=== PATIENT | male | born 1965 ===

== ENCOUNTER 2025-06-20 12:36 | Outpatient (REF) | payer MEDICAID, SELFPAY ==
--- OUTSIDE RECORDS SUMMARY | 2025-05-17 05:45 | XMS_ITS ---
Author Organization [facility] Address [address] [place] [phone] Care Team Providers Care Irrigation System Installer Name Role Phone Mir Bryant Primary Care Provider REASON FOR VISIT (IN OFFICE) Follow Up Encounters Encounter Location Date Provider Diagnosis [employer] [facility] [address] 05/17/20 Mir Bryant Plan Of Treatment Next Appt Details Provider Name:Cassidy Long i, 07/09/2025 09:00:00 AM, [address] [place] [address], [phone], Progress Notes * Sandy AZAROB: 8 (59 yo M)Acc No.[id number]:05/17/2025 Progress Notes Patient: Ron Watsonstephanie Josh Provider: Ron Bryant M.D. :1965 A ge:59 Y S ex:Male Date:05/17/2025 Address:[address] [place] [address] [place], [id number] Subjective: * Chief Complaints: * ( IN OFFICE) Follow Up * The named appointment provid er may or may not be the originator of this progress note, and it is not deemed complete until electronically signed by the appointment provider. Sign off status: Pending * Provider: Ron Bryant M.D. Date: 07/17/2024 Generated for Yamile sim/Ryan/eTransmitting on: 1 08/22/2024 04:25 PM EST
--- OUTSIDE RECORDS SUMMARY | 2025-06-18 05:45 | XMS_ITS ---
Author Organization [facility] Address [address] [place] [address] Care Team Providers Care Data Entry Name Role Phone Mir Bryant Primary Care Provider REASON FOR VISIT (IN OFFICE), Follow Up, Visit productive cough and chest congestion Medications Medication SIG (Take, Route, Frequency, Duration) Notes Start Date End Date Status Montelukast Sodium 10 MG Tablet 1 tablet Orally Once a day; Duration: 30 day(s) 06/17/2025 Active Azithromycin 250 MG Tablet 2 tablet on t he first day, then 1 tablet daily for 4 days Orally Once a day; Duration: 5 days 06/18/2025 Active Lisinopril 20 MG Tablet 1 tablet Orally Once a day; Duration: 30 days 06/17/2025 Active Albuterol Sulfate HFA 108 (9 0 Base) MCG/ACT Aerosol Solution 2 puff as needed Inhalation every 4 hrs; Duration: 30 days 06/17/2025 Active Mucinex 600 MG Tablet Extended Release 12 Hour 1 tablet as needed Orally every 12 hrs; Duration: 10 days 06/18/2025 Active Levocetirizine Dihydrochloride 5 MG Tablet 1 tablet in the evening Orally Once a day; Duration: 30 day(s) 06/17/2025 Active EpiPen 2-Meño 0.3 MG/0.3ML Solution Auto-injector 1 injection as needed Injection Once the Active Social History Tobacco Use: Social History Observation Description Date Details (start date - stop date) Former Smoker NA - NA Social History Tobacco Use: Social Info Question Answer Notes Tobacco Use/Smoking Are you a former smoker How long has it been since you last smoked? > 10 years Additional Findings: Tobacco Non-User Ex-cigaret te smoker Vital Signs Blood pressure systolic 142 mm Hg 06/18/20 25 Blood pressure diastolic 90 mm Hg 025 Heart Rate 88 /min 06/18/2025 Height 67 in 06/18/2025 Weight 225.8 lbs 06/18/2025 BMI 35.36 kg/m2 06/18/2025 Encounters Encounter Location Date Provider Diagnosis [address] [address] 06/18/2025 Mir Bryant Primary osteoarthrit is of right knee M17.11 ; Essential hypertension I10 ; Anxiety F41.9 ; Insomnia due to medical condition G47.01 ; Allergic reaction, initial encounter T78.40XA ; Substance abuse F19.10 ; Wheezing R06.2 ; Postnasal drip R09.82 and Respiratory infection J98.8 Assessments Encounter Date Diagnosis (ICD Code) Assessment Notes Treatment Notes Treatment Clinical Notes Section Notes 06/18/2025 Primary osteoarthritis of right knee (ICD-10 - M17.11) 06/18/2025 Essential hypertension (ICD-10 - I10) 06/18/2025 Anxiety (ICD-10 - F41.9) 06/18/2025 Insomnia due to medical condition (ICD-10 - G47.01) 06/18/2025 Allergic reaction, initial encounter (ICD-10 - T78.40XA) 06/18/2025 Substance abuse (ICD-10 - F19.10) 06/18/2025 Wheezing (ICD-10 - R06.2) 06/18/2025 Postnasal drip (ICD-10 - R09.82) 06/18/2025 Respiratory infection (ICD-10 - J98.8) 06/18/2025 Other This chart has been transcribed by a computerized dictation system. There are likely to be multiple automotive window tinter inaccuracies despite chart review. Plan Of Treatment Medication Medication Name Sig Start Date Stop Date Notes Montelukast Sodium 10 MG Tablet 1 tablet Orally Once a day; Duration: 30 day(s) 06/17/2025 Azithromycin 250 MG Tablet 2 tablet on t he first day, then 1 tablet daily for 4 days Orally Once a day; Duration: 5 days 06/18/2025 Lisinopril 20 MG Tablet 1 tablet Orally Once a day; Duration: 30 days 06/17/2025 Albuterol Sulfate HFA 108 (9 0 Base) MCG/ACT Aerosol Solution 2 puff as needed Inhalation every 4 hrs; Duration: 30 days 06/17/2025 Mucinex 600 MG Tablet Extend ed Release 12 Hour 1 tablet as needed Orally every 12 hrs; Duration: 10 days 06/18/2025 Levocetirizine Dihydrochlori de 5 MG Tablet 1 tablet in the evening Orally Once a day; Duration: 30 day(s) 06/17/2025 Treatment Notes Assessment Notes Other This chart has been transcribed by a computerized dictation system. There are likely to be multiple automotive window tinter inaccuracies despite chart review. Next Appt Details Follow Up: 2 Weeks, Reason: Annual physical with Carmela Provider Name:Cassidy Schaefertorinshannon damir, 07/09/2025 09:00:00 AM, [address] [place] [address], [phone], History and Physical Notes * HPI (History of Present Illness) Category Sub-Category Detail Notes Category Not es Symptom(s) 59-year old mal e patient with history of Essential hypertension,generalized anxiety disorder, depression, Allergic rhinitis,insomnia, and DJD right knee is here for follow-up.Assessment the patient has been taking lisinopril 20 mg by mouth daily. He has been monitoring his blood pressure at home. He has brought his blood pressure instrument erum Lopez calibrated during the visit. Patient's blood pressure instrument reads 33 points high on systolic and 21 points higher on diastolic.After subtraction patient's home blood pressure readings appear to be borderline high. I advised him to increase the dose of lisinopril to 30 mg by mouth daily. She's allergic rhinitis symptoms. Over the bowel to Xyzal, Singulair, and has not had to use albuterol. he complains of a productive cough with chest congestion for the past few days. I started the patient on azithromycin and Mucinex. Advised him to take steam inhalation 2-3 times a day. Examination Category Sub-Category Detail Notes Category Not es General Examination GENERAL APPEARANCE: in no ac huber distress, well developed, well nourished HEAD: normocephalic, atrau matic EYES: pupils equal, round, reactive to light and accommodation THROAT: clear, no erythema, uvula midline, no exudate NECK/THYROID: neck supple, no thyr omegaly, trachea midline, no carotid bruit HEART: no murmurs, regular rate and rhythm, S1, S2 normal LUNGS: clear to auscultatio n bilaterally ABDOMEN: soft, nontender, non distended, no organomegaly , bowel sounds present NEUROLOGIC: alert and oriented x 3, nonfocal SKIN: no suspicious lesion s, warm and dry EXTREMITIES: no clubbing, cyanosi s, or edema PERIPHERAL PULSES: normal, 2+ throughou t MUSCULOSKELETAL: normal, full range o f motion LYMPH NODES: no cervical, axillar y, supraclavicular or inguinal adenopathy PSYCH: cognitive function i ntact, mood/affect full range ORAL CAVITY: mucosa moist, no les ions, palate normal, tongue in midline, well papillated Progress Notes * Andrew AZARdDOB: 8 (59 yo M)Acc No.[id number]:06/18/2025 Progress Notes Patient: Josh Álvarez Provider: Ron Bryant M.D. :1965 A ge:59 Y S ex:Male Date:06/18/2025 Address:[address] [facility], [place], [id number] Subjective: * Chief Complaints: * ( IN OFFICE), Follow UpVisit productive cough and chest congestion * HPI: S ymptom(s): 59-year old male patient with history of Essential hypertension,generalized anxiety disorder, depression, Allergic rhinitis,insomnia, and DJD right knee is here for follow-up.Assessment the patient has been taking lisinopril 20 mg by mouth daily. He has been monitoring his blood pressure at home. He has brought his blood pressure instrument [facility] Lopez calibrated during the visit. Patient's blood pressure instrument reads 33 points high on systolic and 21 points higher on diastolic.After subtraction patient's home blood pressure readings appear to be borderline high. I advised him to increase the dose of lisinopril to 30 mg by mouth daily. She's allergic rhinitis symptoms. Over the bowel to Xyzal, Singulair, and has not had to use albuterol. he complains of a productive cough with chest congestion for the past few days. I started the patient on azithromycin and Mucinex. Advised him to take steam inhalation 2-3 times a day. * ROS: G eneral/Constitutional: Fever d enies. D izziness d enies. F atigue?denies. C hange in appetite d enies. E ndocrine: Weight loss d enies. W eight gain d enies. E xcessive thirst d enies. R espiratory: Cough d enies. C ongestion d enies. W heezing?denies. S putum production d enies. C ardiovascular: Chest pain d enies. D yspnea on exertion d enies.?Edema d enies. P alpitations d enies. G astrointestinal: Abdominal pain d enies. H eartburn d enies. N ausea d enies. V omiting d enies. C hange in bowel habits d enies. B RBPR?denies. D ysphagia d enies. H ematology: Easy bruising d enies. E nlarged glands d enies.? G enitourinary: Frequent urination d enies. P ainful urination d enies. I ncontience d enies. B lood in urine d enies. N octuria d enies. ? M usculoskeletal: C/D/L pain d enies. B zacarias aches d enies. J oint pain a dmits. S ciatica d enies. S kin: Rash d enies. I tching d enies. S kin lesion(s)?denies. H leonel d enies. N eurologic: Weakness d enies. S eizures d enies. H eadache?denies. T ingling/Numbness d enies. M alphonse loss d enies. T remor d enies. P sychiatric: Depressed mood d enies. A nxiety d enies. P anic attacks d enies. D ifficulty sleeping d enies. 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 * Hospitalization/Major Diagno stic Procedure: for above procedures Cardiac arrest related to alcohol & cocaine with flash pulmonary edema and aspiration pneumonia 2021 Hospitalization Verified. * Family History: F ather: alive. M other: alive. C hildren: alive. 2 daughter(s) - healthy. . F amily History Verified.. family history unknown, patient is adopted. * Social History: T obacco Use: T obacco Use/Smoking A re you a f ormer smoker H ow long has it been since you last smoked??> 10 years A dditional Findings: Tobacco Non-User E x-cigarette smoker S ocial History Verified. * Medications: T akingAlbuterol Sulfate HFA 108 (90 Base) MCG/ACT Aerosol Solution 2 puff as needed Inhalation every 4 hrs Montelukast Sodium 10 MG Tablet 1 tablet Orally Once a day Levocetirizine Dihydrochloride 5 MG Tablet 1 tablet in the evening Orally Once a day EpiPen 2-Meño 0.3 MG/0.3ML Solution Auto-injector 1 injection as needed Injection Once the Lisinopril 20 MG Tablet 1 tablet Orally Once a day Medication List reviewed and reconciled with the patientTaking Albuterol Sulfate HFA 108 (90 Base) MCG/ACT Aerosol Solution 2 puff as needed Inhalation every 4 hrs Taking Montelukast Sodium 10 MG Tablet 1 tablet Orally Once a day Taking Levocetirizine Dihydrochloride 5 MG Tablet 1 tablet in the evening Orally Once a day Taking EpiPen 2-Meño 0.3 MG/0.3ML Solution Auto-injector 1 injection as needed Injection Once the Taking Lisinopril 20 MG Tablet 1 tablet Orally Once a day Medication List reviewed and reconciled with the patient * Allergies: y esAllergies Verified. Objective: * Vitals: H t: 67 in, Wt: 225.8 lbs, BMI:35.36Index, BP: 142/90 mm Hg, HR: 88 /min, Ht-cm: 170.18 cm, Wt-k.42 kg. * P ast Orders: Lab:PSA Total+% Free-[id number] * Collection Date 06/11/2025 06/11/2025 Collection Time 08:07 AM 08:07 AM Order Date 06/04/2025 06/11/2025 Prostate Specific Ag 0.8 (Ref Range: 0.0-4.0 ng/mL) TNP (Ref Range: ng/mL) PSA, Free 0.20 (Ref Range: N/A ng/mL) TNP % Free PSA 25.0 (Ref Range: %) NR ???Lab:Urinalysis, Complete-[id number] (Order Date - 06/04/2025) (Collection Date & Time - 06/11/2025 08:07 AM)?ValueReference Range?Specific Carroll TNP-?pHTNP-?ProteinTNP-?GlucoseTNP-?KetonesTNP- ???Lab:Vitamin D, 47-Bpgecji-[id number] (Order Date - 06/04/2025) (Collection Date & Time - 508:07 AM)?ValueReference Range?Vitamin D, 25-Sjhddey76.0L30.0-100.0 - ng/mL?Request ProblemTNP-?Request ProblemTNP- * Lab:LP+Non-HDL Cholesterol-3 [id number] * Collection Date 06/11/2025 06/11/2025 Collection Time 08:07 AM 08:07 AM Order Date 06/04/2025 06/11/2025 Cholesterol, Total 221 H (Ref Range: 100-199 mg/dL) TNP (Ref Range: mg/dL) Triglycerides 72 (Ref Range: 0-149 mg/dL) TNP HDL Cholesterol 106 (Ref Range: >39 mg/dL) TNP VLDL Cholesterol Shalom 12 (Ref Range: 5-40 mg/dL) TNP (Ref Range: mg/dL) LDL Chol Calc (NIH) 103 H (Ref Range: 0-99 mg/dL) NR Non-HDL Cholesterol 115 (Ref Range: 0-129 mg/dL) NR * Lab:TSH+Free [id number] * Collection Date 06/11/2025 06/11/2025 Collection Time 08:07 AM 08:07 AM Order Date 06/04/2025 06/11/2025 TSH 4.410 (Ref Range: 0.450-4.500 uIU/mL) TNP (Ref Range: uIU/mL) T4,Free(Direct) 1.07 (Ref Range: 0.82-1.77 ng/dL) TNP * Lab:Comp. Metabolic Panel (1 3)-[id number] * Collection Date 06/11/2025 06/11/2025 Collection Time 08:07 AM 08:07 AM Order Date 06/04/2025 06/11/2025 Glucose 109 H (Ref Range: 70-99 mg/dL) TNP (Ref Range: mg/dL) BUN 17 (Ref Range: 6-24 mg/dL) TNP Creatinine 1.26 (Ref Range: 0.76-1.27 mg/dL) TNP BUN/Creatinine Ratio 13 (Ref Range: 9-20) NR Sodium 150 H (Ref Range: 134-144 mmol/L) TNP Potassium 4.9 (Ref Range: 3.5-5.2 mmol/L) TNP Chloride 110 H (Ref Range: 96-106 mmol/L) TNP Carbon Dioxide, Total 18 L (Ref Range: 20-29 mmol/L) TNP Calcium 9.4 (Ref Range: 8.7-10.2 mg/dL) TNP Protein, Total 6.9 (Ref Range: 6.0-8.5 g/dL) TNP Albumin 4.7 (Ref Range: 3.8-4.9 g/dL) TNP Globulin, Total 2.2 (Ref Range: 1.5-4.5 g/dL) NR Bilirubin, Total <0.2 (Ref Range: 0.0-1.2 mg/dL) TNP Alkaline Phosphatase 94 (Ref Range: 47-123 IU/L) TNP AST (SGOT) 25 (Ref Range: 0-40 IU/L) TNP eGFR 67 (Ref Range: >59 mL/min/1.73) NR ???Lab:CBC with Diff, Platelet, NLR-[id number] (Order Date - 06/04/2025) (Collection Date & Time - 06/11/2025 08:07 AM)?ValueReference Range?WBC3.63.4- 10.8 - x10E3/uL?RBC4.544.14-5.80 - x10E6/uL?Pwqvfsjwlu11.613.0- 17.7 - g/dL?Fwzsnjzzhw22.537.5-51.0 - %?AYC6607-56 - fL?MCH 32.226.6-33.0 - pg?MCHC34.431.5-35.7 - g/dL?RDW11.611.6-15.4 - % ?Vtjyatbyt634123-038 - x10E3/uL?Utignsbonmc06Fcu Estab. - % ?Doeizn72Ygh Estab. - %?Xhqbpusvr97Hti Estab. - %?Ihw1Zil Estab. - %?Hsfma8Mef Estab. - %?Neutrophils (Absolute)2.21.4-7.0 - x10E3/uL?Lymphs (Absolute)0.6L0.7-3.1 - x10E3/uL?Neut/Lymph Ratio 3.7H0.0-2.9 - ratio?Monocytes(Absolute)0.60.1-0.9 - x10E3/uL?Eos (Absolute)0.10.0-0.4 - x10E3/uL?Baso (Absolute)0.00.0-0.2 - x10E3/uL ?Immature Vwpztiuvkehu6Djr Estab. - %?Immature Grans (Abs)0.00.0- 0.1 - x10E3/uL * Examination: G eneral Examination: GENERAL APPEARANCE: i n no acute distress, well developed, well nourished. HEAD: n ormocephalic, atraumatic. EYES: p upils equal, round, reactive to light and accommodation. ORAL CAVITY: m ucosa moist, no lesions, palate normal, tongue in midline, well papillated. THROAT: c lear, no erythema, uvula midline, no exudate.? NECK/THYROID: n jose david supple, no thyromegaly, trachea midline, no carotid bruit. LYMPH NODES: n o cervical, axillary, supraclavicular or inguinal adenopathy. SKIN: n o suspicious lesions, warm and dry. HEART: n o murmurs, regular rate and rhythm, S1, S2 normal.? LUNGS: c lear to auscultation bilaterally. ABDOMEN: s oft, nontender, nondistended, no organomegaly , bowel sounds present. MUSCULOSKELETAL: n ormal, full range of motion. EXTREMITIES: n o clubbing, cyanosis, or edema. PERIPHERAL PULSES: n ormal, 2+ throughout. NEUROLOGIC: a lert and oriented x3, nonfocal. PSYCH: c ognitive function intact, mood/affect full range.? Assessment: * Assessment: 1. E ssential hypertension - I10 (Primary) 2 . P rimary osteoarthritis of right knee - M17.11 3 . A nxiety - F41.9 4 . I nsomnia due to medical condition - G47.01 5 . A llergic reaction, initial encounter - T78.40XA 6. S ubstance abuse - F19.10 7 . W heezing - R06.2 ? 8 . P ostnasal drip - R09.82 9 . R espiratory infection - J98.8? Plan: * Treatment: 2. W heezing Start Albuterol Sulfate HFA Aerosol Solution, 108 (90 Base) MCG/ACT, 2 puff as needed, Inhalation, every 4 hrs, 30 days, 1, Refills 0. 3. P ostnasal drip Start Montelukast Sodium Tablet, 10 MG, 1 tablet, Orally, Once a day, 30 day(s), 30, Refills 1;?Start Levocetirizine Dihydrochloride Tablet, 5 MG, 1 tablet in the evening, Orally, Once a day, 30 day(s), 30, Refills 1. 4. R espiratory infection Start Azithromycin Tablet, 250 MG, 2 tablet on the first day, then 1 tablet daily for 4 days, Orally, Once a day, 5 days, 6, Refills 0; S tart Mucinex Tablet Extended Release 12 Hour, 600 MG, 1 tablet as needed, Orally, every 12 hrs, 10 days, 20 Tablet, Refills 0. 5. O thers Notes: This chart has been transcribed by a computerized dictation system. There are likely to be multiple automotive window tinter inaccuracies despite chart review. * Follow Up: 2 Weeks (Reason: Annual physical with Carmela) Billing Information: * Procedure Codes: * The named appointment provid er may or may not be the originator of this progress note, and it is not deemed complete until electronically signed by the appointment provider. Sign off status: Pending * Provider: Ron Bryant M.D. Date: 08/19/2024 Generated for Yamile sim/Ryan/Andrae on: 08/22/2024 04:24 PM EST
--- NOTE | ~2025-06-20 | XR_ITS ---
EXAMINATION: XR KNEE, LEFT CLINICAL INFORMATION: M25.562 - Pain in left knee COMPARISON: None available. TECHNIQUE: Four views of the left knee. FINDINGS: No fracture, dislocation, or suspicious bone lesion. Mild to moderate medial compartment joint space narrowing with marginal osteophytic spurring. Mild lateral and patellofemoral compartment osteoarthrosis. Chondrocalcinosis noted in the patellofemoral compartments suggesting CPPD. Mild spurring of the tibial spines. There is a moderate sized suprapatellar joint effusion. There is no soft tissue abnormality. XR/XR knee LT 3V IMPRESSION: 1. Tricompartmental osteoarthritis, mild to moderate in the medial compartment. The presence of chondrocalcinosis in the patellofemoral compartment raises the possibility of underlying CPPD. 2. Moderate suprapatellar joint effusion. Electronically signed by: Russ Odom MD 06/20/2025 03:27 PM VINAYAK
--- OUTSIDE RECORDS SUMMARY | 2025-06-21 16:25 | XMS_ITS | Clinical Summary ---
Author Organization [facility] Prior to 12/02/[address] [place] [address] Care Team Providers Care Freight Checker Name Role Phone Mir Bryant MD Primary Care Provider [phone] Allergies Active Allergy Reactions Criticality Noted Date [...] this topic Medical Devices Implanted Type Area Investor Relations Manager Device Identifier Shelf Expiration Date Model / Serial / Lot Knee Fem Bsplt W Pa Stry-Howm [id number] 219 - [id number] Implanted:Qty: 1 on 11/09/2022 by Omar Elizabeth MD at [facility] and Med Right: Knee [employer] [id number] 08/18/2027 5517-F-502 / / [id number] Knee Bsplt Triathlon Ti Sz 4 Stry-Howm [id number] 543 - [id number] Implanted:Qty: 1 on 11/09/2022 by Omar Elizabeth MD at [facility] and Med Right: Knee [employer] [id number] 07/09/2027 5536-B-400 / / [id number] Knee Tib Insrt Cr-X3 [id number] Stry-How 1131-[id number] 525 - [id number] Implanted:Qty: 1 on 11/09/2022 by Omar Elizabeth MD at [facility] and Med Right: Knee [employer] [id number] 02/05/2025 5530-G-411 / / [id number] Knee Ptla Asym Tritanium 35x10 Stry-How [id number] 040 - [id number] Implanted:Qty: 1 on 11/09/2022 by Omar Elizabeth MD at [facility] and Med Right: Knee [employer] [id number] 08/04/2027 5552-L-350 / / [id number] Advance Directives For more information, please contact: [phone] Latest Code Status on File Code Status Date Activated Date Inactivated Comments Full Code 11/09/2022 6:52 AM 11/10/2022 7:09 PM This co de status was ascertained in the following way: discussion with healthcare screening representative . Code Status History Code Status Date Activated Date Inactivated Comments Full Code 11/09/2022 6:00 AM 11/09/2022 6:52 AM This co de status was ascertained in the following way: discussion with patient . Care Teams Freight Checker Relationship Specialty Start Date End Date Mir Bryant MD [address] [place] [address] [address] [place] [address] PCP - General Internal Medicine 12/25/21
--- OUTSIDE RECORDS SUMMARY | 2025-06-21 16:25 | XMS_ITS | Patient Health Record ---
Author Organization [facility] Address [address] [place] [address] Care Team Providers Care Bus Driver/Monitor Name Role Phone Mir Bryant Primary Care Provider Allergies No Known Allergies Results Component Value Reference Range Flag Notes PSA Total+% Free-[id number] Reviewed date:06/16/2025 11:29:00 AM Interpretation: Performing Lab:[facility] [place], [address], [address], [place], Phone - [phone], [facility] Notes[facility]Report: Clinical Information:XR/[id number] Prostate Specific Ag TNP Please refer to the following specimen for additional lab results. Refer to Spec #[id number] Gui ECLIA methodology. . According to the [place] [employer], Serum PSA should decrease and [...] PSA, Free TNP Test not perfo rmed LP+Non-HDL Cholesterol-48512 5 Reviewed date:06/16/2025 11:29:00 AM Interpretation: Performing Lab:[facility], [address], [address], [place], Phone - [phone], [facility] Notes[facility]Report: Clinical Information:XR/[id number] Cholesterol, Total TNP Please refer to the following specimen for additional lab results. Refer to Spec #[id number] Triglycerides TNP Test not pe rformed HDL Cholesterol TNP Test not performed VLDL Cholesterol Shalom TNP Unable to calculate result since non-numeric result obtained for component test. TSH+Free [id number] Reviewed date:06/16/2025 11:29:00 AM Interpretation: Performing Lab:[facility] [place], [address], [address], [place], Phone - [phone], Director - [facility] Notes/Report: Clinical Information:XR/[id number] TSH TNP Please refer to the following specimen for additional lab results. Refer to Spec #[id number] T4,Free(Direct) TNP Test not performed Comp. Metabolic Panel (13)-3 58870 Reviewed date:06/16/2025 11:29:00 AM Interpretation: Performing Lab:[facility] [place], [address], [address], [place], Phone - [phone], Director - [facility] Notes/Report: Clinical Information:XR/[id number] Glucose TNP Please refer to the following specimen for additional lab results. Refer to Spec #[id number] BUN TNP Test not perfo rmed Creatinine [...] AST (SGOT) TNP Test not perfo rmed Urinalysis, Complete-666262 Reviewed date:06/16/2025 11:29:00 AM Interpretation: Performing Lab:[facility] [place], [address], [address], [place], Phone - [phone], Director - [facility] Notes/Report: Clinical Information:XR/[id number] Specific [place] TNP Test not performed. Patient was unable to provide a self-collected specimen for the requested testing. The following test(s) were not performed: pH TNP Test not perfo rmed Protein TNP Test not perfo rmed Glucose TNP Test not perfo rmed Ketones TNP Test not perfo rmed Vitamin D, 83-Qmyoxvp-859735 Reviewed date:06/16/2025 11:29:00 AM Interpretation: Performing Lab:[facility], [address], [address], [place], Phone - [phone], [facility] Notes/Report: Clinical Information:XR/[id number] Vitamin D, 25-Hydroxy 29.0 30.0-100.0 ng/mL L Vitamin D deficiency has been defined by the [place] of Medicine and an Endocrine Society practice guideline as a level of serum 25-OH vitamin D less than 20 ng/mL (1,2). The Endocrine Society went on to further define vitamin D insufficiency as a level between 21 and 29 ng/mL (2). 1. IOM ([place] of Medicine). 2010. Dietary reference intakes for calcium and D. [place]: The National Academies Press. 2. Hardik FISCHER, Paulina ASHLEY, Hilda SEYMOUR, et al. Evaluation, treatment, and prevention of vitamin D deficiency: an Endocrine Society clinical practice guideline. JCEM. 2010; 96(7):1911-30. Request Problem TNP Test not performed. Patient was unable to provide a self-collected specimen for the requested testing. The following test(s) were not performed: TEST: 303380 Urinalysis, Complete Request Problem TNP Please refer to the following specimen for additional lab results. TEST: 370670 TSH+Free T4 011092 Comp. Metabolic Panel (13) 973190 LP+Non-HDL Cholesterol 418753 PSA Total+% Free Refer to Spec #[id number] TSH+Free T4-768444 Reviewed date:06/16/2025 11:29:00 AM Interpretation: Performing Lab:[facility], [address] [facility], Phone - [phone], Director - Dori Notes/Report: TSH 4.410 0.450-4.500 uIU/mL T4,Free(Direct) 1.07 0.82-1.77 ng/dL Comp. Metabolic Panel (13)-3 17476 Reviewed date:06/16/2025 11:29:00 AM Interpretation: Performing Lab:[facility], [address] [facility], [place], Phone - [phone], Director - Dori Notes/Report: Glucose 109 70-99 [...] 47-123 IU/L AST (SGOT) 25 0-40 IU/L PSA Total+% Free-[id number] Reviewed date:06/16/2025 11:29:00 AM Interpretation: Performing Lab:[facility], [address] [place] [address], [place], Phone - [phone], Director - [facility] Notes/Report: Prostate Specific Ag 0.8 0.0-4.0 ng/mL Gui FliqzIA methodology. . According to the [place] [employer], Serum PSA should decrease and [...] 4 and 10 ng/mL, by patient age (Catalona et al, ABHI 1998, 279:1542). % Free PSA 50-64 yr 65-75 yr 0.00-10.00% 56% 55% 10.01-15.00% 24% 35% 15.01-20.00% 17% 23% 20.01-25.00% 10% 20% >25.00% 5% 9% Please note: Dany et al did not make specific recommendations regarding the use of percent free PSA for any other population of men. LP+Non-HDL Cholesterol-30943 5 Reviewed date:06/16/2025 11:29:00 AM Interpretation: Performing Lab:[facility] [place], [address], [place], Phone - [phone], Director - Dori Notes/Report: Cholesterol, Total 221 100-199 mg/dL H Triglycerides 72 0-149 mg/dL HDL Cholesterol 106 >39 mg/dL VLDL Cholesterol Shalom 12 5-40 mg/dL LDL Chol Calc ([facility]) 103 0-99 mg/dL H Non-HDL Cholesterol 115 0-129 mg/dL CBC with Diff, Platelet, NLR -[id number] Reviewed date:06/16/2025 11:29:00 AM Interpretation: Performing Lab:[facility], [address], [address], [place], Phone - [phone], Director - Danny Notes/Report: Clinical Information:XR/[id number] WBC 3.6 3.4-10.8 x10E3/uL RBC 4.54 4.14-5.80 [...] W/U Status Risk Notes Problem Primary insomnia (4515080) Primary insomnia (F51.01) Active confirmed Problem Insomnia (339992287) Insomnia due to medical condition (G47.01) Active confirmed Problem Anxiety (17854065) Anxiety (F41.9) Active confirmed Problem Essential hypertension (23342980) Essential hypertension (I10) Active confirmed Problem Allergic reaction (179523285) Allergic reaction, initial encounter (T78.40XA) Active confirmed Problem Substance abuse (2925943818) Substance abuse (F19.10) Active confirmed Problem Osteoarthritis of knee (194438130) Primary osteoarthritis of right knee (M17.11) Active confirmed Vital Signs Heart Rate 88 /min 06/18/2025 Blood pressure diastolic 90 mm Hg 06/18/2025 Height 67 in 06/18/2025 Blood pressure systolic 142 mm Hg 06/18/2025 Weight 225.8 lbs 06/18/2025 BMI 35.36 kg/m2 06/18/2025 Encounters Encounter Location Date Provider Diagnosis [address] [address] 06/18/2025 Mir Bryant Primary osteoarthrit is of right knee M17.11 ; Essential hypertension I10 ; Anxiety F41.9 ; Insomnia due to medical condition G47.01 ; Allergic reaction, initial encounter T78.40XA ; Substance abuse F19.10 ; Wheezing R06.2 ; Postnasal drip R09.82 and Respiratory infection J98.[address] [address] 06/04/2025 Mir Bryant Primary osteoarthrit is of right knee M17.11 ; Essential hypertension I10 ; Anxiety F41.9 ; Insomnia due to medical condition G47.01 ; Allergic reaction, initial encounter T78.40XA ; Substance abuse F19.10 ; Laboratory tests ordered as part of a complete physical exam (CPE) Z00.00 ; Wheezing R06.2 and Postnasal drip R09.[address] [address] 06/04/2025 Mir Bryant Essential hypertensi on I10 Assessments Encounter Date Diagnosis (ICD Code) Assessment Notes Treatment Notes Treatment Clinical Notes Section Notes 06/18/2025 Primary osteoarthritis of right knee (ICD-10 - M17.11) 06/04/2025 Essential hypertension (ICD-10 - I10) 06/04/2025 Primary osteoarthritis of right knee (ICD-10 - M17.11) 06/18/2025 Anxiety (ICD-10 - F41.9) 06/18/2025 Essential hypertension (ICD-10 - I10) 06/04/2025 Anxiety (ICD-10 - F41.9) 06/04/2025 Essential hypertension (ICD-10 - I10) 06/18/2025 Insomnia due to medical condition (ICD-10 - G47.01) 06/04/2025 Insomnia due to medical condition (ICD-10 - G47.01) 06/18/2025 Allergic reaction, initial encounter (ICD-10 - T78.40XA) 06/04/2025 Allergic reaction, initial encounter (ICD-10 - T78.40XA) 06/04/2025 Substance abuse (ICD-10 - F19.10) 06/18/2025 Substance abuse (ICD-10 - F19.10) 06/04/2025 Laboratory [...] system. There are likely to be multiple utility repairer inaccuracies despite chart review. 06/04/2025 Other This chart has been transcribed by a computerized dictation system. There are likely to be multiple utility repairer inaccuracies despite chart review. Plan Of Treatment [...] Name:Cassidy Long i, 07/09/2025 09:00:00 AM, [address] [place], [address], Insurance Providers Payer Name Payer Address Payer Phone Subscriber Number Group Number Insured Name Patient Relationship to Insured Coverage Start Date Coverage End Date [facility] [place] [address] [address] [place] [address] [id number] Josh Guardado Self - patient is the [...]
--- OUTSIDE RECORDS SUMMARY | 2025-06-21 16:25 | XMS_ITS | Clinical Summary ---
[facility] Organization [facility] Address [address] [place] [address] Care Team Providers Care Floor Surfacer Name Role Phone Mir Bryant MD Primary Care Provider [phone] Surgical History Surgery Date Site/Laterality Comments APPENDECTOMY [...] this topic Medical Devices Implanted Type Area Kaitara [place] Device Identifier Shelf Expiration Date Model / Serial / Lot Knee Fem Bsplt W Pa Stry-How [id number] Implanted:Qty: 1 on 11/09/2022 by Omar Elizabeth MD Right: Knee [employer] [id number] 08/18/2027 5517-F-502 / / [id number] Knee Bsplt Triathlon Ti Sz 4 Stry-How [id number] Implanted:Qty: 1 on 11/09/2022 by Omar Elizabeth MD Right: Knee [employer] [id number] 07/09/2027 5536-B-400 / / [id number] Knee Tib Insrt Cr-X3 [id number] Stry-How [id number] Implanted:Qty: 1 on 11/09/2022 by Omar Elizabeth MD Right: Knee [employer] [id number] 02/05/2025 5530-G-411 / / [id number] Knee Ptla Asym Tritanium 35x10 [facility] [id number] Implanted:Qty: 1 on 11/09/2022 by Omar Elizabeth MD Right: Knee [employer] [id number] 08/04/2027 5552-L-350 / / [id number] Care Teams Floor Surfacer Relationship Specialty Start Date End Date Mir Bryant MD PCP - General Internal Medicine 12/25/21
== END 2025-06-20 12:37 | disposition home or self-care (01) ==
LOC: HO.HOSX 12:36
PROVIDERS: Visit Provider Orthopaedic Surgery
DX: S83.242A Other tear of medial meniscus, current injury, left knee, initial encounter (principal)
CPT/HCPCS: 20610; 73562; 99202; J1010; J2003

== ENCOUNTER 2025-06-20 15:04 | Outpatient (AMB) | payer MEDICAID, SELFPAY ==
--- OUTSIDE RECORDS SUMMARY | 2025-05-17 05:45 | XMS_ITS ---
Author Organization [facility] Address [address] [place] [address] Care Team Providers Care Rn Compliance Name Role Phone Mir Bryant Primary Care Provider [phone] REASON FOR VISIT (IN OFFICE) Follow Up Encounters Encounter Location Date Provider Diagnosis [employer] [facility] [address] 05/17/20 Mir Bryant Plan Of Treatment Next Appt Details Provider Name:Cassidy Long i, 07/09/2025 09:00:00 AM, [address] [place] [address], [phone], Progress Notes * Sandy AZAROB: 8 (59 yo M)Acc No.[id number]:05/17/2025 Progress Notes Patient: Ron Watsonstephanie Josh Provider: Ron Bryant M.D. :1965 A ge:59 Y S ex:Male Date:05/17/2025 Address:[address] [place] [address] [place], [id number] Subjective: * Chief Complaints: * ( IN OFFICE) Follow Up * The named appointment provid er may or may not be the originator of this progress note, and it is not deemed complete until electronically signed by the appointment provider. Sign off status: Pending * Provider: Ron Bryant M.D. Date: 07/17/2024 Generated for Yamile sim/Ryan/eTransmitting on: 1 08/21/2024 08:02 PM EST
--- OUTSIDE RECORDS SUMMARY | 2025-06-18 05:45 | XMS_ITS ---
Author Organization [facility] Address [address] [place] [address] Care Team Providers Care Chip Washer Name Role Phone Mir Bryant Primary Care [...] 06/18/2025 Encounters Encounter Location Date Provider Diagnosis [address] [address] 06/18/2025 Mir Bryant Primary osteoarthrit is of [...] system. There are likely to be multiple eeo officer inaccuracies despite chart review. Plan Of Treatment [...] system. There are likely to be multiple eeo officer inaccuracies despite chart review. Next Appt Details Follow Up: 2 Weeks, Reason: Annual physical with Carmela Provider Name:Cassidy Schaefertorinshannon damir, 07/09/2025 09:00:00 AM, [address] [place] [address], [phone], History and Physical Notes * HPI (History [...] * Andrew AZARdDOB: 8 (59 yo M)Acc No.[id number]:06/18/2025 Progress Notes Patient: Josh Álvarez Provider: Ron Bryant M.D. :1965 A ge:59 Y S ex:Male Date:06/18/2025 Address:[address] [facility], [place], [id number] Subjective: * Chief Complaints: * ( IN [...] He has brought his blood pressure instrument [facility] calibrated during the visit. Patient's blood [...] kg. * P ast Orders: Lab:PSA Total+% Free-[id number] * Collection Date 06/11/2025 06/11/2025 Collection Time 08:07 AM 08:07 AM Order Date 06/04/2025 06/11/2025 Prostate Specific Ag 0.8 (Ref Range: 0.0-4.0 ng/mL) TNP (Ref Range: ng/mL) PSA, Free 0.20 (Ref Range: N/A ng/mL) TNP % Free PSA 25.0 (Ref Range: %) NR ???Lab:Urinalysis, Complete-[id number] (Order Date - 06/04/2025) (Collection Date & Time - 06/11/2025 08:07 AM)?ValueReference Range?Specific Parrish TNP-?pHTNP-?ProteinTNP-?GlucoseTNP-?KetonesTNP- ???Lab:Vitamin D, 79-Zfrsmzj-[id number] (Order Date - 06/04/2025) (Collection Date & Time - 508:07 AM)?ValueReference Range?Vitamin D, 25-Uqrvlds90.0L30.0-100.0 - ng/mL?Request ProblemTNP-?Request ProblemTNP- * Lab:LP+Non-HDL Cholesterol-3 [id number] * Collection Date 06/11/2025 06/11/2025 Collection Time [...] (Ref Range: 0-129 mg/dL) NR * Lab:TSH+Free [id number] * Collection Date 06/11/2025 06/11/2025 Collection Time 08:07 AM 08:07 AM Order Date 06/04/2025 06/11/2025 TSH 4.410 (Ref Range: 0.450-4.500 uIU/mL) TNP (Ref Range: uIU/mL) T4,Free(Direct) 1.07 (Ref Range: 0.82-1.77 ng/dL) TNP * Lab:Comp. Metabolic Panel (1 3)-[id number] * Collection Date 06/11/2025 06/11/2025 Collection Time [...] >59 mL/min/1.73) NR ???Lab:CBC with Diff, Platelet, NLR-[id number] (Order Date - 06/04/2025) (Collection Date & Time - 06/11/2025 08:07 AM)?ValueReference Range?WBC3.63.4- 10.8 - x10E3/uL?RBC4.544.14-5.80 - x10E6/uL?Fgaclzdtgf99.613.0- 17.7 - g/dL?Pffewzaesi11.537.5-51.0 - %?YVP5285-76 - fL?MCH 32.226.6-33.0 - pg?MCHC34.431.5-35.7 - g/dL?RDW11.611.6-15.4 - % ?Qfkcybmuh694086-567 - x10E3/uL?Mjizuweqhgc18Hwi Estab. - % ?Tgvzcw00Mnz Estab. - %?Msrpyhdkh84Wct Estab. - %?Wjp1Erd Estab. - %?Solnk8Pdd Estab. - %?Neutrophils (Absolute)2.21.4-7.0 - x10E3/uL?Lymphs (Absolute)0.6L0.7-3.1 - x10E3/uL?Neut/Lymph Ratio 3.7H0.0-2.9 - ratio?Monocytes(Absolute)0.60.1-0.9 - x10E3/uL?Eos (Absolute)0.10.0-0.4 - x10E3/uL?Baso (Absolute)0.00.0-0.2 - x10E3/uL ?Immature Czpsdzbslxcc8Qay Estab. - %?Immature Grans (Abs)0.00.0- 0.1 - [...] system. There are likely to be multiple eeo officer inaccuracies despite chart review. * Follow Up: [...] Date: 08/19/2024 Generated for Yamile sim/Ryan/Andrae on: 08/21/2024 08:01 PM EST
--- NOTE | 2025-06-20 15:17 | MHC.OFFVIS ---
Vital Signs 06/20/25 15:24 Height 5 ft 8 in Weight 220 lb BMI 33.4 Intake Visit Reasons: Left knee pain and giving way Intake Note: Chun is a 59 year old who presents with complaints of progressively worsening left knee pain and giving way. The patient did undergo right total knee replacement surgery by Dr. Elizabeth several years ago. He reports minimal discomfort in his right knee. He describes his left knee pain as sharp in nature. Most of the pain is along the medial aspect of his knee. His symptoms have gotten worse over the last year in spite of continued non operative treatments. He has undergone right knee arthroscopic surgery in the past prior to his right total knee replacement surgery. The patient has failed the last 6 weeks of conservative treatment which has included Tylenol, ibuprofen, a home exercise program and physical therapy exercises. At this point his left knee pain and mechanical symptoms are interfering with his activities of daily living and his ability to sleep well through the night. The patient states that his left knee will give out several times per day. 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 Physical Exam Vital Signs: BMI result Body Mass Index 33.4 Extrem Other: Left knee examination shows a mild effusion, palpable crepitus with range of motion, pain with range of motion, tenderness along his medial joint line, positive Giuliano's test, no instability Office Procedures AMB Joint Injection/Aspiration Joint Injection/Aspiration Primary Site: Left Knee Prep: site was prepped using aseptic technique Injected: 40 mg of, DepoMedrol, with 3 mL of and 1% plain Lidocaine Procedure: The patient tolerated the procedure well Coding 55777 - Large joint Procedure code (CPT) selection complete Results Reviewed Results Reviewed: X-rays of the patient's left knee show mild diffuse joint space narrowing, no acute bony abnormalities Assessment & Plan Assessment & Plan (1) Tear of medial meniscus of left knee: Code(s): S83.242A - Other tear of medial meniscus, current injury, left knee, initial encounter Category: Medical (2) Left knee pain: Code(s): M25.562 - Pain in left knee Category: Medical Plan Mr. Hanks presents with left knee pain and mechanical symptoms most likely due to a medial meniscus tear. Thus, I will send the patient for an MRI of his left knee for further evaluation. I will see him back following the MRI to discuss the findings and treatment options. We also discuss the risks and benefits of a cortisone injection. The patient wished to proceed. Tolerated the injection well. He will continue with his activity modifications. Feel free to call me at any time should questions regarding his orthopedic management arise. Thank you very much for asking me to see this very friendly gentleman. I spent 22 minutes in reviewing the patient's records and imaging studies, seeing the patient and documenting in the medical record. Orders: Orders XR knee LT 3V 06/20/25 M25.562 - Pain in left knee MR knee LT wo con Today S83.242A - Other tear of medial meniscus, current injury, left knee, initial encounter AMB Joint Injection/Aspiration 06/20/25 M25.562 - Pain in left knee Coding Level of Care Code New Pt Level 3 (86165) Add On Problem Visit Only Diagnoses Tear of medial meniscus of left knee S83.242A Left knee pain M25.562 CPT Codes Coding - 15401 Large joint: 92963 - Large joint ([id number])
[2025-06-20 15:24] VITALS: BMI 33.4
--- OUTSIDE RECORDS SUMMARY | 2025-06-20 20:02 | XMS_ITS | Patient Health Record ---
Author Organization [facility] Address [address] [place] [address] Care Team Providers Care Medical Malpractice Paralegal Name Role Phone [facility] Primary Care Provider Allergies No Known Allergies Results Component Value Reference Range Flag Notes Urinalysis, Complete-700761 Reviewed date:06/16/2025 11:29:00 AM Interpretation: Performing Lab:[facility], [address], [address], [place], Phone - [phone], Director - [facility] Notes/Report: Clinical Information:[id number] Specific [place] TNP Test not performed. Patient was unable to provide a self-collected specimen for the requested testing. The following test(s) were not performed: pH TNP Test not perfo rmed Protein TNP Test not perfo rmed Glucose TNP Test not perfo rmed Ketones TNP Test not perfo rmed Vitamin D, 72-Gaqpope-516163 Reviewed date:06/16/2025 11:29:00 AM Interpretation: Performing Lab:[facility] [place], [address], [address], [place], Phone - [phone], [facility] Notes/Report: Clinical Information:[id number] Vitamin D, 25-Hydroxy 29.0 30.0-100.0 ng/mL L Vitamin D deficiency has been defined by the [place] of [employer] and an Endocrine Society practice guideline as a level of serum 25-OH vitamin D less than 20 ng/mL (1,2). The Endocrine Society went on to further define vitamin D insufficiency as a level between 21 and 29 ng/mL (2). 1. IOM ([place] of [employer]). 2010. Dietary reference intakes for calcium and D. [place]: The National Academies Press. 2. Hardik MF, Paulina [place], Hilda SEYMOUR, et al. Evaluation, treatment, and prevention of vitamin D deficiency: an Endocrine Society clinical practice guideline. JCEM. 2010; 96(7):1911-30. Request Problem TNP Test not performed. Patient was unable to provide a self-collected specimen for the requested testing. The following test(s) were not performed: TEST: 499322 Urinalysis, Complete Request Problem TNP Please refer to the following specimen for additional lab results. TEST: 115353 TSH+Free T4 326127 Comp. Metabolic Panel (13) 861206 LP+Non-HDL Cholesterol 306729 PSA Total+% Free Refer to Spec #[id number] TSH+Free T4-795202 Reviewed date:06/16/2025 11:29:00 AM Interpretation: Performing Lab:[facility], [address] [facility], Phone - [phone], Director - [facility] Notes/Report: TSH 4.410 0.450-4.500 uIU/mL T4,Free(Direct) 1.07 0.82-1.77 ng/dL Comp. Metabolic Panel (13)-3 90580 Reviewed date:06/16/2025 11:29:00 AM Interpretation: Performing Lab:[facility], [address] [place] [address], [address], Phone - [phone], Director - [facility] Notes/Report: Clinical Information:[id number] Glucose TNP Please refer to the following specimen for additional lab results. Refer to Spec #[id number] BUN TNP Test not perfo rmed Creatinine TNP Test not perfo rmed Sodium TNP Test not perfo rmed Potassium TNP Test not perfo rmed Chloride TNP Test not perfo rmed Carbon Dioxide, Total TNP Siria t not performed Calcium TNP Test not perfo rmed Protein, Total TNP Test not p erformed Albumin TNP Test not perfo rmed Bilirubin, Total TNP Test not performed Alkaline Phosphatase TNP Test not performed AST (SGOT) TNP Test not perfo rmed TSH+Free T4-416545 Reviewed date:06/16/2025 11:29:00 AM Interpretation: Performing Lab:[facility], [address], [address], [place], Phone - [phone], Director - [facility] Notes/Report: Clinical Information:[id number] TSH TNP Please refer to the following specimen for additional lab results. Refer to Spec #[id number] T4,Free(Direct) TNP Test not performed LP+Non-HDL Cholesterol-26750 5 Reviewed date:06/16/2025 11:29:00 AM Interpretation: Performing Lab:[facility], [address], [address], [place], Phone - [phone], Director - [facility] Notes/Report: Clinical Information:XR/[id number] Cholesterol, Total TNP Please refer to the following specimen for additional lab results. Refer to Spec #[id number] Triglycerides TNP Test not pe rformed HDL Cholesterol TNP Test not performed VLDL Cholesterol Shalom TNP Unable to calculate result since non-numeric result obtained for component test. PSA Total+% Free-961000 Reviewed date:06/16/2025 11:29:00 AM Interpretation: Performing Lab:[facility], [address], [address], [place], Phone - [phone], Director - [facility] Notes/Report: Clinical Information:[id number] Prostate Specific Ag TNP Please refer to the following specimen for additional lab results. Refer to Spec #[id number] Gui ECLIA methodology. . According to the [place] [employer], Serum PSA should decrease and remain at undetectable levels after radical prostatectomy. The AUA defines biochemical recurrence as an initial PSA value 0.2 ng/mL or greater followed by a subsequent confirmatory PSA value 0.2 ng/mL or greater. Values obtained with different assay methods or kits cannot be used interchangeably. Results cannot be interpreted as absolute evidence of the presence or absence of malignant disease. PSA, Free TNP Test not perfo rmed PSA Total+% Free-[id number] Reviewed date:06/16/2025 11:29:00 AM Interpretation: Performing Lab:[facility], [address] [place] [address], [place], Phone - [phone], Director - [facility] Notes/Report: Prostate Specific Ag 0.8 0.0-4.0 ng/mL Gui ECLIA methodology. . According to the [place] [employer], Serum PSA should decrease and remain at undetectable levels after radical prostatectomy. The AUA defines biochemical recurrence as an initial PSA value 0.2 ng/mL or greater followed by a subsequent confirmatory PSA value 0.2 ng/mL or greater. Values obtained with different assay methods or kits cannot be used interchangeably. Results cannot be interpreted as absolute evidence of the presence or absence of malignant disease. PSA, Free 0.20 N/A ng/mL Gui ECLIA me thodology. % Free PSA 25.0 The table below lists the probability of prostate cancer for men with non-suspicious HANG results and total PSA between 4 and 10 ng/mL, by patient age (Dany et al, ABHI 1998, 279:1542). % Free PSA 50-64 yr 65-75 yr 0.00-10.00% 56% 55% 10.01-15.00% 24% 35% 15.01-20.00% 17% 23% 20.01-25.00% 10% 20% >25.00% 5% 9% Please note: Dany et al did not make specific recommendations regarding the use of percent free PSA for any other population of men. Comp. Metabolic Panel (13)-3 09219 Reviewed date:06/16/2025 11:29:00 AM Interpretation: Performing Lab:[facility], [address] [place] [address], [place], Phone - [phone], Director - [facility] Notes/Report: Glucose 109 70-99 mg/dL H BUN 17 6-24 mg/dL Creatinine 1.26 0.76-1.27 mg/dL eGFR 67 >59 mL/min/1.73 BUN/Creatinine Ratio 13 9-20 Sodium 150 134-144 mmol/L H Potassium 4.9 3.5-5.2 mmol/L Chloride 110 96-106 mmol/L H Carbon Dioxide, Total 18 20-29 mmol/L L Calcium 9.4 8.7-10.2 mg/dL Protein, Total 6.9 6.0-8.5 g/dL Albumin 4.7 3.8-4.9 g/dL Globulin, Total 2.2 1.5-4.5 g/dL Bilirubin, Total <0.2 0.0-1.2 mg/dL Alkaline Phosphatase 94 47-123 IU/L AST (SGOT) 25 0-40 IU/L LP+Non-HDL Cholesterol-59294 5 Reviewed date:06/16/2025 11:29:00 AM Interpretation: Performing Lab:[facility], [address], [place], Phone - [phone], Director - [facility] Notes/Report: Cholesterol, Total 221 100-199 mg/dL H Triglycerides 72 0-149 mg/dL HDL Cholesterol 106 >39 mg/dL VLDL Cholesterol Shalom 12 5-40 mg/dL LDL Chol Calc (NIH) 103 0-99 mg/dL H Non-HDL Cholesterol 115 0-129 mg/dL CBC with Diff, Platelet, NLR -[id number] Reviewed date:06/16/2025 11:29:00 AM Interpretation: Performing Lab:[facility], [address], [address], [place], Phone - [phone], [facility] Notes/Report: Clinical Information:[id number] WBC 3.6 3.4-10.8 x10E3/uL RBC 4.54 4.14-5.80 x10E6/uL Hemoglobin 14.6 13.0-17.7 g/dL Hematocrit 42.5 37.5-51.0 % MCV 94 79-97 fL MCH 32.2 26.6-33.0 pg MCHC 34.4 31.5-35.7 g/dL RDW 11.6 11.6-15.4 % Platelets 181 150-450 x10E3/uL Neutrophils 62 Not Estab. % Lymphs 18 Not Estab. % Monocytes 17 Not Estab. % Eos 2 Not Estab. % Basos 1 Not Estab. % Neutrophils (Absolute) 2.2 1.4-7.0 x10E3/uL Lymphs (Absolute) 0.6 0.7-3.1 x10E3/uL L Neut/Lymph Ratio 3.7 0.0-2.9 ratio H Published COVID-19 studies suggest: Low likelihood of severe COVID-19 disease progression 0.0-2.9 High likelihood of severe COVID-19 disease progression >4.9 Monocytes(Absolute) 0.6 0.1-0.9 x10E3/uL Eos (Absolute) 0.1 0.0-0.4 x10E3/uL Baso (Absolute) 0.0 0.0-0.2 x10E3/uL Immature Granulocytes 0 Not Estab. % Immature Grans (Abs) 0.0 0.0-0.1 x10E3/uL Reason For Referral No Information Medications Medication SIG (Take, Route, Frequency, Duration) Notes Start Date End Date Status Montelukast Sodium 10 MG Tablet 1 tablet Orally Once a day; Duration: 30 day(s) 06/17/2025 Active Levocetirizine Dihydrochloride 5 MG Tablet 1 tablet in the evening Orally Once a day; Duration: 30 day(s) 06/17/2025 Active Azithromycin 250 MG Tablet 2 tablet on t he first day, then 1 tablet daily for 4 days Orally Once a day; Duration: 5 days 06/18/2025 Active EpiPen 2-Meño 0.3 MG/0.3ML Solution Auto-injector 1 injection as needed Injection Once the Active Lisinopril 20 MG Tablet 1 tablet Orally Once a day; Duration: 30 days 06/17/2025 Active Albuterol Sulfate HFA 108 (9 0 Base) MCG/ACT Aerosol Solution 2 puff as needed Inhalation every 4 hrs; Duration: 30 days 06/17/2025 Active Mucinex 600 MG Tablet Extended Release 12 Hour 1 tablet as needed Orally every 12 hrs; Duration: 10 days 06/18/2025 Active Social History Tobacco Use: Social History Observation Description Date Details (start date - stop date) Former Smoker NA - NA Social History Drugs/Alcohol: Social Info Question Answer Notes Drugs Have you used drugs other than those for medical reasons in the past 12 months? Yes Cocaine? Yes Marijuana? Yes Alcohol Screen Did you have a drink containing alcohol in the past year? Yes How often did you have a drink containing alcohol in the past year? Monthly or less (1 point) How many drinks did you have on a typical day when you were drinking in the past year? 3 or 4 drinks (1 point) How often did you have 6 or more drinks on one occasion in the past year? Never (0 point) Points 2 Interpretation Negative Tobacco Use: Social Info Question Answer Notes Tobacco Use/Smoking Are you a former smoker How long has it been since you last smoked? > 10 years Additional Findings: Tobacco Non-User Ex-cigaret te smoker Problems Problem Type SNOMED Code ICD Code Onset Dates Problem Status W/U Status Risk Notes Problem Primary insomnia (4256370) Primary insomnia (F51.01) Active confirmed Problem Insomnia (750016004) Insomnia due to medical condition (G47.01) Active confirmed Problem Anxiety (75098653) Anxiety (F41.9) Active confirmed Problem Essential hypertension (50330204) Essential hypertension (I10) Active confirmed Problem Allergic reaction (594875976) Allergic reaction, initial encounter (T78.40XA) Active confirmed Problem Substance abuse (5274572882) Substance abuse (F19.10) Active confirmed Problem Osteoarthritis of knee (863204326) Primary osteoarthritis of right knee (M17.11) Active confirmed Vital Signs Heart Rate 88 /min 06/18/2025 Blood pressure diastolic 90 mm Hg 06/18/2025 Height 67 in 06/18/2025 Blood pressure systolic 142 mm Hg 06/18/2025 Weight 225.8 lbs 06/18/2025 BMI 35.36 kg/m2 06/18/2025 Encounters Encounter Location Date Provider Diagnosis [address] [address] 06/18/2025 Mir Bryant Primary osteoarthrit is of right knee M17.11 ; Essential hypertension I10 ; Anxiety F41.9 ; Insomnia due to medical condition G47.01 ; Allergic reaction, initial encounter T78.40XA ; Substance abuse F19.10 ; Wheezing R06.2 ; Postnasal drip R09.82 and Respiratory infection J98.[address] [address] 06/04/2025 Mir Bryant Primary osteoarthrit is of right knee M17.11 ; Essential hypertension I10 ; Anxiety F41.9 ; Insomnia due to medical condition G47.01 ; Allergic reaction, initial encounter T78.40XA ; Substance abuse F19.10 ; Laboratory tests ordered as part of a complete physical exam (CPE) Z00.00 ; Wheezing R06.2 and Postnasal drip R09.[address] [address] 06/04/2025 Mir Bryant Essential hypertensi on I10 Assessments Encounter Date Diagnosis (ICD Code) Assessment Notes Treatment Notes Treatment Clinical Notes Section Notes 06/18/2025 Primary osteoarthritis of right knee (ICD-10 - M17.11) 06/04/2025 Primary osteoarthritis of right knee (ICD-10 - M17.11) 06/04/2025 Essential hypertension (ICD-10 - I10) 06/18/2025 Anxiety (ICD-10 - F41.9) 06/18/2025 Essential hypertension (ICD-10 - I10) 06/04/2025 Anxiety (ICD-10 - F41.9) 06/04/2025 Essential hypertension (ICD-10 - I10) 06/18/2025 Insomnia due to medical condition (ICD-10 - G47.01) 06/04/2025 Insomnia due to medical condition (ICD-10 - G47.01) 06/04/2025 Allergic reaction, initial encounter (ICD-10 - T78.40XA) 06/18/2025 Allergic reaction, initial encounter (ICD-10 - T78.40XA) 06/18/2025 Substance abuse (ICD-10 - F19.10) 06/04/2025 Substance abuse (ICD-10 - F19.10) 06/04/2025 Laboratory tests ordered as part of a complete physical exam (CPE) (ICD-10 - Z00.00) 06/18/2025 Wheezing (ICD-10 - R06.2) 06/18/2025 Postnasal drip (ICD-10 - R09.82) 06/04/2025 Wheezing (ICD-10 - R06.2) 06/04/2025 Postnasal drip (ICD-10 - R09.82) 06/18/2025 Respiratory infection (ICD-10 - J98.8) 06/18/2025 Other This chart has been transcribed by a computerized dictation system. There are likely to be multiple filling station equipment mechanic inaccuracies despite chart review. 06/04/2025 Other This chart has been transcribed by a computerized dictation system. There are likely to be multiple filling station equipment mechanic inaccuracies despite chart review. Plan Of Treatment Pending Test Test Name Order Date GUAIAC, SINGLE SPECIMEN 12/16/2022 *EKG 11/02/2022 25OH VITAMIN D 09/25/2021 25OH VITAMIN D 04/29/2022 BASIC METABOLIC PANEL 10/29/2021 CBC (COMPLETE BLOOD COUNT) WITH DIFF CBC (COMPLETE BLOOD COUNT) WITH DIFF COMPREHENSIVE METABOLIC PANEL 09/25/2021 COMPREHENSIVE METABOLIC PANEL 04/29/2022 FERRITIN 09/25/2021 FOLIC ACID 09/25/2021 IRON AND TIBC 09/25/2021 LIPID PANEL 09/25/2021 LIPID PANEL 04/29/2022 MAGNESIUM 10/29/2021 MAGNESIUM 09/25/2021 PHOSPHORUS 09/25/2021 PHOSPHORUS 10/29/2021 PSA, SCREEN 09/25/2021 PSA, SCREEN 04/29/2022 THYROID PANEL (TSH, FT4) 04/29/2022 THYROID PANEL (TSH, FT4) 09/25/2021 URINALYSIS, COMPLETE 09/25/2021 URINALYSIS, COMPLETE 04/29/2022 VITAMIN B12 09/25/2021 COMPLETE URINALYSIS 10/06/2022 Next Appt Details Provider Name:Cassidy Long i, 07/09/2025 09:00:00 AM, [address] [place], [address], Insurance Providers Payer Name Payer Address Payer Phone Subscriber Number Group Number Insured Name Patient Relationship to Insured Coverage Start Date Coverage End Date [facility] [place] [address] [address] [place] [address] [id number] Josh Guardado Self - patient is the insured Medical (General) History Medical History History ICD Code Right wrist fracture Rotator cuff injury right shoulder Right hand fracture with ORIF Right knee arthroscopy Cardiac arrest s/p drug and alcohol intoxication complicated by pulmonary edema and aspiration pneumonia Surgical History Surgery Date(Month/Year) Arthroscopy Right knee 2018 ORIF right hand 25 years ago Total rigth knee replacement 11/22 Hospitalization History Reason Date(Month/Year) Cardiac arrest related to al cohol & cocaine with flash pulmonary edema and aspiration pneumonia 2021 for above procedures
--- OUTSIDE RECORDS SUMMARY | 2025-06-20 20:02 | XMS_ITS ---
Author Name [facility] Organization Unknown History of Medication Use Medication Directions Dispensed Refills Start Date End Date [facility] oxycodone 10 mg tablet Take 1 tab every 6 hours as needed for pain 10/13/2022 active oxycodone 10 mg tablet Take 1 tab every 6 hours as needed for pain 10/13/2022 active acetaminophen 500 mg tablet active acetaminophen 500 mg tablet active amoxicillin 875 mg-potassium clavulanate 125 mg tablet TAKE 1 TABLET BY MOUTH TWICE A DAY FOR 7 DAYS UNTIL FINISHED active amoxicillin 875 mg-potassium clavulanate 125 mg tablet TAKE 1 TABLET BY MOUTH TWICE A DAY FOR 7 DAYS UNTIL FINISHED active aspirin 81 mg tablet,delayed release active aspirin 81 mg tablet,delayed release active celecoxib 200 mg capsule TAKE 1 CAPSULE BY MOUTH EVERY DAY active celecoxib 200 mg capsule TAKE 1 CAPSULE BY MOUTH EVERY DAY active duloxetine 30 mg capsule,delayed release TAKE 1 CAPSULE BY MOUTH EVERY DAY FOR 30 DAYS active duloxetine 30 mg capsule,delayed release TAKE 1 CAPSULE BY MOUTH EVERY DAY FOR 30 DAYS active epinephrine 0.3 mg/0.3 mL injection, auto-injector INJECT 1 PEN INTRAMUSCULARLY ONCE NEEDED active epinephrine 0.3 mg/0.3 mL injection, auto-injector INJECT 1 PEN INTRAMUSCULARLY ONCE NEEDED active hydroxyzine pamoate 25 mg capsule TAKE 1 CAPSULE BY MOUTH THREE TIMES A DAY NEEDED FOR ANXIETY FOR 14 DAYS active hydroxyzine pamoate 25 mg capsule TAKE 1 CAPSULE BY MOUTH THREE TIMES A DAY NEEDED FOR ANXIETY FOR 14 DAYS active lisinopril 10 mg tablet TAKE 1 TABLET BY MOUTH EVERY DAY FOR 30 DAYS active lisinopril 10 mg tablet TAKE 1 TABLET BY MOUTH EVERY DAY FOR 30 DAYS active lisinopril 20 mg tablet TAKE 1 TABLET BY MOUTH EVERY DAY active lisinopril 20 mg tablet TAKE 1 TABLET BY MOUTH EVERY DAY FOR 30 DAYS active lorazepam 1 mg tablet TAKE 1 TABLET BY MOUTH EVERY DAY NEEDED FOR 30 DAYS active lorazepam 1 mg tablet TAKE 1 TABLET BY MOUTH EVERY DAY NEEDED FOR 30 DAYS active meloxicam 15 mg tablet TAKE 1 TABLET BY MOUTH EVERY DAY active meloxicam 15 mg tablet TAKE 1 TABLET BY MOUTH EVERY DAY active methocarbamol 750 mg tablet active methocarbamol 750 mg tablet active naloxone 4 mg/actuation nasal spray 1 intranasal spray in case of accidental opioid overdose. May repeat dosing until conscious or until EMS arrives. active naloxone 4 mg/actuation nasal spray 1 intranasal spray in case of accidental opioid overdose. May repeat dosing until conscious or until EMS arrives. active ondansetron 4 mg disintegrating tablet DISSOLVE 1 TABLET BY MOUTH ON THE TONGUE EVERY 6 HOURS FOR 5 DAYS active ondansetron 4 mg disintegrating tablet DISSOLVE 1 TABLET BY MOUTH ON THE TONGUE EVERY 6 HOURS FOR 5 DAYS active ondansetron HCl 4 mg tablet active ondansetron HCl 4 mg tablet active oxycodone 5 mg tablet TAKE 1 TABLET BY MOUTH EVERY 6 HOURS NEEDED active oxycodone 5 mg tablet TAKE 1 TABLET BY MOUTH EVERY 6 HOURS NEEDED active Stimulant Laxative Plus 8.6 mg-50 mg tablet active Stimulant Laxative Plus 8.6 mg-50 mg tablet active zolpidem 10 mg tablet TAKE 1 TABLET BY MOUTH EVERY DAY AT BEDTIME NEEDED FOR 30 DAYS active zolpidem 10 mg tablet TAKE 1 TABLET BY MOUTH EVERY DAY AT BEDTIME NEEDED FOR 30 DAYS active Problems Problem Status Onset Date Problem Type Date of Resoluti on Source Osteoarthritis of right knee joint active 2022-10-16 [facility] Arthritis of right knee active 2022-09-25 [facility] Pain of right knee joint active 2022-10-14 [facility] History of right total knee replacement active 2023-02-22 ProblemAct [facility] Encounters Encounter Type Encounter Reason Primary Diagnosis Location Date Ambulatory [facility] [place] 07/19/2023 Ambulatory [facility] [place] 07/19/2023 Ambulatory [facility] [place] 07/19/2023 Ambulatory [facility] [place] 05/18/2023 Ambulatory [facility] [place] 05/18/2023 Ambulatory [facility] [place] 05/11/2023 Ambulatory [facility] [place] 03/29/2023 Ambulatory [facility] [place] 03/24/2023 Ambulatory [facility] [place] 03/16/2023 Ambulatory [facility] [place] 02/22/2023 Ambulatory [facility] [place] 02/18/2023 Ambulatory [facility] [place] 02/18/2023 Ambulatory [facility] [place] 02/18/2023 Ambulatory [facility] [place] 02/17/2023 Ambulatory [facility] [place] 01/18/2023 Ambulatory [facility] [place] 01[facility]13/2023 Ambulatory [facility] [place] 01/13/2023 Ambulatory [facility] [place] 01/12/2023 Ambulatory [facility] [place] 12/22/2022 Ambulatory [facility] [place] 12/18/2022 Ambulatory [facility] [place] 12/14/2022 Ambulatory [facility] [place] 11[facility]24/2022 Ambulatory [facility] [place] 11/24/2022 Ambulatory [facility] [place] 11/02/2022 Ambulatory [facility] [place] 10/17/2022 Care Team Organization Name Specialty Phone Email Start Date End [facility] [place] [facility] 11/03/2022 11/09/2022 [facility] [place] [facility] 06/04/202202/20
--- OUTSIDE RECORDS SUMMARY | 2025-06-20 20:02 | XMS_ITS | Data Portability ---
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 Santamaria presents with progressively worsening right knee pain due to end-stage degenerative joint disease. I had a lengthy discussion with the patient regarding the treatment options. At this point the patient has failed continued nonoperative treatments. The risks and benefits of right total knee replacement surgery were discussed at length with the patient. We had a discussion regarding implants and bearing options. We have a detailed discussion of the advantages and limitations of the specific implant designs, materials and bearing surfaces. All questions were answered to the patient's satisfaction. The patient wishes to proceed with surgery. Because of patient's symptoms are severe and intractable we will schedule her surgery for as soon as possible. Coronavirus precautions will be taken. I will see the patient back 2 to 3 weeks following his surgery for his first postoperative appointment. The patient will follow-up as instructed. julia Not available 09/28/2022 12:05:51 11/24/2022 11/24/2022 HPI : Patient is doing well 2 weeks status post right TKA. They deny fever, chest pain and shortness of breath. They are compliant with anticoagulation protocol. Pain is well controlled with Tylenol. Physical Exam : Patient is well nourished, well- developed, in no acute distress, with appropriate mood and affect. The patient demonstrates good knee motion and strength. The incision is clean and dry with no sign of infection. Negative calf tenderness and Tejinder's sign. Range of motion is from 3-130 degrees. Assessment/Plan : The patient is doing well 2 weeks from total knee arthroplasty. Continue 28 day course of anticoagulation therapy. The patient will do physical therapy and return for follow-up in 1 month for re-evaluation; sooner with any problems. [email or web address] Not available 11/24/2022 13:43:18 02/22/2023 02/22/2023 HPI : Patient is here for 3.5 month(s) follow-up for a RIGHT total knee replacement. P jean pierre reports good pain relief in the knee and satisfactory christian of function in terms of activities of daily living. Current condition is improved relative to their pre operative condition. They have not encountered any major problems since their last office visit. He had an incident very recently where he was running from a stinging bees, he fell and twisted the right knee. He describes that it caused some mild discomfort but that has begun to settle down. He is looking forward to get back to full duty work as soon as possible. Physical Exam : Patient is well nourished, well-developed, in no acute distress, with appropriate mood and affect. The patient is oriented to time, place, and person. Respirations are even and unlabored. The affected limb is well-perfused, with well healed skin incision. The patient demonstrates good knee motion, stability, and strength. The knee moves from 0-120 degrees. Muscle strength is normal. Pedal pulses are palpable. Assessment/Plan : This patient is functioning well after total knee arthroplasty. Continue knee conditioning exercises. [id number] medications as needed. The patient understands that ultimate failure may occur due to mechanical wear, loosening or breakage. Follow-up at one year post-op is recommended to assess for the possibility of failure. Follow up sooner with any problems. A total of 26 minutes were spent reviewing previous charting, obtaining history and physical exam, and reviewing treatment plan. Not available 02/22/2023 12:11:16 Plan of Treatment Reminders Order Date Submit Date Provider Last Modified By Organization Details Last Modified Time Details Appointments None recorded. Lab None recorded. Referral None recorded. Procedures None recorded. Surgeries total knee replacement (SURG) 2022 023 [email or web address] [id number] [facility], [address] [place] [address], [address], 3 09:33:26 Imaging XR, knee, 3 view 2022 023 [email or web address] [facility], [address], [address], [place], [address], 3 13:48:03 XR, knee, 1 or 2 view 2022 023 [email or web address] [facility], [address], [address], [place], [address], 3 13:07:22 Medication Orders None recorded. Patient TargetsNo targets recorded. Patient Instructions Encounter Date Encounter Id Patient Instructions Last Modified By Organization Details Last Modified Time 10/16/2022 [id number] Xiao and patellar view of the right knee demonstrate degenerative joint disease with joint space narrowing, osteophyte formation, and subchondral sclerosis. This was reviewed in conjunction with prior x-rays which show a lateral of the knee which shows similar degenerative changes. [email or web address] Not available 10/16/2022 12:44:36 02/22/2023 [id number] work status report* - May return to full duty work without restrictions immediately. [email or web address] Not available 03/01/2023 08:20:59 Right knee X-ray series does not show any signs of implant related issues including loosening, malposition, instability, periprosthetic fracture, periosteal reaction or infection. Not available 02/22/2023 12:11:27 Reason for Referral None Reported. Results Created Date Observation Date Name Description Value Unit Range Abnormal Flag Note LastModifiedBy Organization Detail LastModifiedTime 09/26/19 23 imagi ng/di agnos tic resul t No observ ation record ed. [email or web address] Not Available 09/25 14:08:08 10/29/19 23 10/28/2022 CT, knee, w/o contr ast No observ ation record ed. [email or web address] [facility] ([facility]) [address], [place], [address], 10/29/2022 07:57:07 Result Notes None recorded. Problems Name Problem SNOMED Code Status Onset Date Resolution Date Notes Provider Name and Address Organization Details Recorded Time Pain of knee region 0827698858 Active 2016 Acute pain of left knee Not Available [facility] 5 23:34:50 Arthritis of right knee joint 8815464695379 102 Active 2022 Tyrel Lewis MD [address], [place], [address] , [place] [facility] 3 14:27:45 Pain of right knee joint 0399724012120 00 Active 2022 NAKITA LINDSAY PA-C [address], [place], [address] , [place] [facility] 3 13:31:10 Osteoarthr itis of right knee joint 9631537827672 00 Active 2022 Omar Elizabeth MD [address], [place], [address] , [place] [facility] 3 12:44:40 History of right total knee replacemen t 3385072939885 102 Active 2022 NAKITA RAY PA-C [address], [place], [address] , [place] [facility] 3 12:08:50 Problem Notes None recorded. Procedures Surgical History Date Name Laterality Status Provider Name and Address Organization Details Recorded Time Knee arthroscopy /surgery completed Dang Ballard [place] [facility] 09/25/2022 14:01:41 Imaging Results None recorded. Procedure Notes None recorded. Medical Equipment None Reported. Allergies Allergen ID Allergen Name Allergen Category Reaction Reaction Severity Criticality Documentation Date Start Date Code Code System Note Provider Name and Address Organization Details Recorded Time 15252 honey bee venom environme nt Not available Not available Not available 03/27/20252022 79244 7 RxNorm Was given epi pen for this one year ago Not Available [facility] 5 01:21:19 Medications Name Sig Start Date Stop Date Status Note LastModified by Organization Details LastModified Time celecoxib 200 mg capsule Take 1 capsule (200 mg total) by mouth daily. 11/03 completed Not Available Not Available Not Available acetaminoph en 325 mg tablet Take 2 tablets (650 mg total) by mouth every 6 (six) hours as needed for pain. 2022 active Not Available Not Available Not Avai lable meloxicam 15 mg tablet Take 1 tablet (15 mg total) by mouth daily. 2022 active Not Available Not Available Not Avai lable lisinopril 20 mg tablet TAKE 1 TABLET BY MOUTH EVERY DAY active Not Available Not Available No t Available ondansetron HCl 4 mg tablet active Not Available Not Available Not Available sennosides 8.6 mg-docusate sodium 50 mg tablet Take 1 tablet by mouth 2 (two) times a day. 2022 active Not Available Not Available Not Avai lable aspirin 81 mg tablet,brad yed release Take 1 tablet (81 mg total) by mouth 2 (two) times a day after meals. 2022 active Not Available Not Available Not Avai lable acetaminoph en 500 mg tablet active Not Available Not Available Not Available methocarbam ol 750 mg tablet Take 1 tablet (750 mg total) by mouth every 6 (six) hours as needed (spasms). 2022 active Not Available Not Available Not Avai lable methylpredn isolone acetate 40 mg/mL suspension for injection 05/19 completed Not Available Not Available Not Available lisinopril 10 mg tablet 2022 active Not Available Not Available Not Avai lable ibuprofen 200 mg tablet Take 2 tablets (400 mg total) by mouth every 6 (six) hours as needed for pain. 11/10 completed Not Available Not Available Not Available lorazepam 1 mg tablet TAKE 1 TABLET BY MOUTH EVERY DAY NEEDED FOR 30 DAYS active Not Available Not Available No t Available epinephrine 0.3 mg/0.3 mL injection, auto-inject or INJECT 1 PEN INTRAMUSC ULARLY ONCE NEEDED active Not Available Not Available No t Available zolpidem 10 mg tablet TAKE 1 TABLET BY MOUTH EVERY DAY AT BEDTIME NEEDED FOR 30 DAYS active Not Available Not Available No t Available ondansetron 4 mg disintegrat ing tablet DISSOLVE 1 TABLET BY MOUTH ON THE TONGUE EVERY 6 HOURS FOR 5 DAYS active Not Available Not Available No t Available amoxicillin 875 mg-myeshau m clavulanate 125 mg tablet TAKE 1 TABLET BY MOUTH TWICE A DAY FOR 7 DAYS UNTIL FINISHED active Not Available Not Available No t Available oxycodone 5 mg tablet TAKE 1 TABLET BY MOUTH EVERY 6 HOURS NEEDED active Not Available Not Available No t Available hydroxyzine pamoate 25 mg capsule TAKE 1 CAPSULE BY MOUTH THREE TIMES A DAY NEEDED FOR ANXIETY FOR 14 DAYS active Not Available Not Available No t Available duloxetine 30 mg capsule,del ayed release TAKE 1 CAPSULE BY MOUTH EVERY DAY FOR 30 DAYS active Not Available Not Available No t Available lidocaine (PF) 10 mg/mL (1 %) injection solution 12/25 completed Not Available Not Available Not Available oxycodone 10 mg tablet Take 1 tab every 6 hours as needed for pain 2022 active Not Available Not Available Not Avai lable naloxone 4 mg/actuatio n nasal spray 1 intranasa l spray in case of accidenta l opioid overdose. May repeat dosing until conscious or until EMS arrives. active Not Available Not Available No t Available Vitals Date Recorded Body height Body mass index (BMI) Body weight Provider Name and Address Organization Details Last Updated DateTime 09/25/2022 170.18 cm 33 kg/m2 [address].[address] [facility] 09/25/2022 14:01:19 Date Recorded Body height Provider Name an d Address Organization Details Last Updated DateTime 10/16/2022 170[address] [facility] 10/16/2022 11:14:54 Date Recorded Body height Body weight Body mass index (BMI) Provider Name and Address Organization Details Last Updated DateTime 11/09/2022 172.7 cm 91458 g 29.67 kg/m2 Not Available [facility] 03/27/2025 00:55:11 Date Recorded Respiratory rate Heart rate Body temperature Oxygen saturation Systolic And Diastolic Provider Name and Address Organization Details Last Updated DateTime 3 17 /min 52 /min 98.6 [degF] 99 % 155/97 mm[Hg] Not Available [facility] 5 00:55:12 Date Recorded Body height Body mass index (BMI) Body weight Provider Name and Address Organization Details Last Updated DateTime 02/22/2023 170.18 cm 33 kg/m2 [address]9023.[address] [place] [facility] 02/22/2023 11:53:40 Social History None recorded. Functional Status None recorded. Mental Status None recorded. Family History Nothing Reported. Medical History Condition Response Coronary Artery Disease N Gout N Hyperthyroidism N MRSA N Blood Transfusion N Emphysema N Depression N COPD N Hypothyroidism N Pacemaker N Vascular Disease N Gastrointestinal Disease N Anxiety Disorder N Autoimmune disease N Arthritis N Cancer N Stroke N High Cholesterol N Neurologic Disorder N Liver Disease N Organ Transplant N Rheumatoid Arthritis N Arrhythmia N Fibromyalgia N Kidney Disease N Allergies/Hayfever N Adverse Reaction to Anesthesia N Thyroid Problems N Anemia N Brain Injury N Heart Attack (PR) N Osteopenia N Diabetes N Bleeding Disorder N Seizures/Epilepsy N AIDS/HIV N Congestive Heart Failure (CHF) N Asthma N Amputation N Reflux/GERD N Sleep Apnea N Hepatitis N Aneurysm N Heart Disease N Pulmonary Embolism N Hypertension N Osteoporosis N Past Encounters Encounter ID Performer Location Encounter Start Date Encounter Closed Date Diagnosis/Indication Diagnosis SNOMED-CT Code Diagnosis ICD10 Code Diagnosis IMO Codes Diagnosis Note [id number] MD MARYLOU Cornejo [facility] [address] [facility] [address] [place] [address] 09/25/2022 13:55:48 09/25/2022 14:54:47 Arthritis of right knee joint 3579233188 741631 M13.861 [id number] MD MARYLOU Jesus [facility] [address] [facility] [address] [place] [address] 10/16/2022 10:35:47 10/16/2022 12:06:17 Pain of right knee joint 2753960058 24088 M25.561 Osteoarthr itis of right knee joint 8042007117 93021 M17.11 Arthritis of knee 554887 002 M13.869 [id number] [address] 11/24/2022 13:26:44 11/24/2022 13:45:46 Osteoarthritis of right knee joint 0894006297 89856 M17.11 [id number] MD SAL [address] [address] 12/22/2022 14:47:42 12/22/2022 15:29:24 Aftercare [id number] Z47.1 [id number] AALIYAH [place] [facility] [address] [facility] [address] [place] [address] 02/22/2023 11:50:27 02/22/2023 12:10:08 History of right total knee replacement 3723790740 900686 Z96.651 Health Concerns Section Related Observation LastModified by Organization Detai ls LastModified Time None Recorded Concern Status LastModified by Organization Details LastModified Time None Recorded Advance Directives Directive None Recorded Payers Insurance Date Sequence Insurance Name Policy Number Policy Nuñez Covered Member ID Nuñez Member ID Guarantor Name 11/02/2022 1 [facility] (O) [id number] Josh M Rosalio [id number] Josh Santamaria 02/22/2023 1 [facility] [employer] - DOS ON OR BEFORE 07/04/2024 (PPO) [id number] Josh Velasquez Rosalio [id number] Josh XavierSantamaria Notes Date Note Type Note Provider Name and Address Organization Details Recorded Time 09/25/2022 text/html The patient presents with complaints of progressively worsening right knee pain. He describes his pain as sharp and severe in nature, 10 out of 10. His pain has gotten worse over the last few years in spite of continued nonoperative treatments. He has done physical therapy for 12 weeks over the last 6 months which aggravated his pain. He has also tried Tylenol and anti-inflammatory medicines which gave him minimal relief. He has had multiple injections. The most recent injection gave him only temporary relief. The patient has difficulty walking even short distances because of his pain. At this point his right knee pain is interfering with his activities of daily living and his ability to sleep well through the night. Tyrel Lewis MD [address] [facility] [address], [place], [address], [place] [facility] 09/28/2022 12:06:25 10/16/2022 text/html HPI: T benjamin you for the pleasure of requesting a consultation on this patient. Patient comes in complaining of right knee pain. Patient was a patient of Dr. Hernandez. He was actually scheduled for a knee replacement in November. He is [place] care [place]. He has a history of right knee pain which is significantly worsened over the last few months. He had injections in the past which did not bring significant relief. He has been out of work because of his significant knee pain. He was taking oxycodone over the last month because of his knee pain.This patient is experiencing right knee pain for a period lasting greater than the last three months, which is severe (VAS score greater than or equal to 6 on a 0-10 scale) in intensity and the restriction of function (appropriate for a patient of this age) are intolerable. The pain substantially limits activities of daily living. In particular, walking tolerance and ability to stair climb is reduced. Conservative management such as non-steroidal anti-inflammatory medications available by prescription, physician directed therapy, ice and/or heat and activity modification have been minimally effective or deemed insufficient by the patient for a period lasting greater than 3-6 months in duration. Assistive devices and external support were not deemed by the patient to be helpful in improving their function. The patient is unable to tolerate further conservative measures, including physical therapy, due to the severity of arthritis and level of pain. Review of systems is negative for rapidly progressive neurological disorder, chest pain, shortness of breath, fevers, chills, or any signs of active or persistent local or systemic infection. Physical Exam: Patient is well nourished, well-developed, in no acute distress, with appropriate mood and affect. The patient is oriented to time, place, and person. Respirations are even and unlabored. Gait evaluation does reveal a limp. There is no inguinal adenopathy. Examination of the contralateral knee shows normal range of motion, strength, no tenderness, and intact skin. The affected limb is well-perfused, without skin lesions, shows a grossly normal motor and sensory examination. Right knee motion is significantly reduced and does cause significant pain. The knee moves from 5-110 degrees. The knee is stable within that [id number] to AP and ML stress. The alignment of the knee is neutral. Muscle strength is normal. Pedal pulses are palpable. Hip examination, including flexion and internal rotation, was negative in that groin pain was not produced. Assessment/Plan: The patient is an appropriate candidate for consideration of right total knee replacement. An extensive discussion was conducted of the natural history of the disease and the variety of surgical and non-surgical treatment options available to the patient. A risk/benefit analysis was discussed with the patient reviewing the advantages and disadvantages of surgical intervention at this time. A full explanation was given of the nature and the purpose of the procedure and anesthesia, its benefits, possible alternative methods of diagnosis of treatment, the risks involved, the possibility of complications, the foreseeable consequences of the procedure and the possible results of the non-treatment. No guarantee or assurance was made as to the results that may be obtained. Specifically, the risks were identified to include, but are not limited, to the following: Infection, phlebitis, pulmonary embolism, , paralysis, dislocation, pain, stiffness, instability, limp, weakness, breakage, leg-length inequality, uncontrolled bleeding, nerve injury, blood vessel injury, pressure sores, anesthetic risks, delayed healing of wound and bone, and wear and loosening. Additional risks of robotic knee replacement were discussed (if used) including but not limited to pin site infection, draining, longer incision, longer OR time, and fracture near the pin sites. Further discussion was undertaken with the patient about the details of surgical preparation, treatment and postoperative rehabilitation including medical clearance, autotransfusion, the hospital course and the postoperative rehabilitation involved. As a part of routine preoperative counseling, the patient either denies recent smoking history or, after education was provided, agrees to attempt smoking cessation. The patient has also been counseled regarding the elevated risk of surgical complications in patients with an elevated BMI. The patient demonstrates understanding of the increased risk in such patients. The patient was encouraged to participate in physical activity and diet modification under the direction of their primary care physician. We will plan on proceeding with right total knee arthroplasty using the [place] [employer] total knee replacement system. However, it is possible during the preoperative planning process or due to intraoperative findings that a different implant system may be utilized in order to optimize the patient's outcome. We had a discussion regarding implant and bearing options. We had a detailed discussion of the advantages and limitations of the specific implant designs, materials and bearing surfaces. All questions were answered to the patient's satisfaction, and the patient was asked to call the office with any further concerns. All in all, I feel that this patient is a good candidate for surgical reconstruction. Plan for right total knee replacement, robotic assisted in November at [facility]. I had long discussion with patient and his about preoperative opioid use. I discussed that there is evidence you will have a worse outcome and increased chance of complications with preoperative opioid use. My recommendation was to discontinue opioid use, since he had only been on it for a few weeks. This will help him have a better and more successful recovery. Omar Elizabeth MD [address] [facility] [address], [place], [address], [place] [facility] 10/16/2022 12:45:53 12/22/2022 text/html HPI: Patient is here for a 6 week follow-up from a right TKA. He is recovering very well. He has minimal to no pain. He is very happy with his progress. He is very happy with his strength. He is much better than he was before surgery. He is not taking any medications. Physical Exam:Patient is well nourished, well- developed, in no acute distress, with appropriate mood and affect. The patient is AAOx3. The patient demonstrates good knee motion and strength. The incision is well healed. Range of motion 3 to 115 degrees. Assessment/Plan: The patient is functioning well 6 weeks from total knee arthroplasty. Continue physical therapy as needed. Return for follow-up in 2 months with x-rays at that time. Omar Elizabeth MD [address], [place], [address], [place] [facility] 12/22/2022 15:29:16
--- OUTSIDE RECORDS SUMMARY | 2025-06-20 20:02 | XMS_ITS | Clinical Summary ---
Author Organization [facility] Prior to 12/02/[address] [place] [address] Care Team Providers Care Glove Sewer Name Role Phone Mir Bryant MD Primary Care Provider [phone] Allergies Active Allergy Reactions Criticality Noted Date Comments Bee Sting 11/03/2022 Was given epi pen for this one year ago Medications Medication Sig Dispensed Refills Start Date End Date Status DULoxetine (CYMBALTA) DR capsule 30 mg Take 1 capsule (30 mg total) by mouth daily. 0 10/07/2022 Active lisinopril (PRINIVIL,ZESTRIL) tablet 10 mg 0 11/02/2022 Active Multiple Vitamins-Minerals (CertaVite/Antioxidan ts) TABS Take 1 tablet by mouth daily. 0 Active acetaminophen (TYLENOL) 325 MG tablet Take 2 tablets (650 mg total) by mouth every 6 (six) hours as needed for pain. 60 tablet 0 11/09/2022 Active oxyCODONE (ROXICODONE) 5 MG immediate release tablet Take 1 tablet (5 mg total) by mouth every 4 (four) hours as needed for pain. 30 tablet 0 11/09/2022 Active aspirin EC 81 MG EC tablet Take 1 tablet (81 mg total) by mouth 2 (two) times a day after meals. 84 tablet 0 11/09/2022 Active meloxicam (MOBIC) 15 MG tablet Take 1 tablet (15 mg total) by mouth daily. 15 tablet 0 11/10/2022 Active methocarbamol (ROBAXIN) 750 MG tablet Take 1 tablet (750 mg total) by mouth every 6 (six) hours as needed (spasms). 60 tablet 0 11/09/2022 Active senna-docusate (PERICOLACE) 8.6-50 MG Take 1 tablet by mouth 2 (two) times a day. 14 tablet 0 11/09/2022 Active Active Problems Problem Noted Date Diagnosed Date Arthritis of knee, right 12/25/2021 Acute pain of left knee 07/02/2017 Social History Tobacco Use Types Packs/Day Years Used Date Smoking Tobacco: Former Cigarettes Q uit: 1989 Tobacco Cessation:Counseling Given: Not Answered Alcohol Use Standard Drinks/Week Comments Yes 6 (1 standard drink = 0.6 oz pur e alcohol) Sex and Gender Information Value Date Recorded Sex Assigned at Male 11/03/2022 2:31 PM EDT Gender Identity Male 11/03/2022 2:31 PM EDT Sexual Orientation Not on file Job Start Date Occupation Industry Not on file Not on file Not on file Last Filed Vital Signs Vital Sign Reading Time Taken Comments Blood Pressure 155/97 11/10/2022 7:38 AM EDT Pulse 52 11/10/2022 7:38 AM EDT Temperature 37 C (98.6 F) 11/10/2022 7:38 AM EDT Respiratory Rate 17 11/10/2022 7:38 AM EDT Oxygen Saturation 99% 11/10/2022 7:38 AM EDT Inhaled Oxygen Concentration - - Weight 88.5 kg (195 lb 1.7 oz) 11/09/2022 7:21 A M EDT Height 172.7 cm (5' 8 ) 11/09/2022 7:21 AM EDT Body Mass Index 29.67 11/09/2022 7:21 AM EDT Plan of Treatment Health Maintenance Due Date Last Done Comments Hepatitis B Vaccines (1 of 3 - 3-dose series) 1967 Hepatitis C Screening 1967 COVID-19 Vaccine (#1) 05/09/1968 Depression Screening 1979 BMI Counseling 11/06/1985 Preventative Health Evaluation 11/06/1985 DTap / Tdap / Td (1 - Tdap) 11/06/1986 Colon Cancer Screening (Colonoscopy) 11/06/2012 Shingrix-Zoster Vaccine (1 of 2) 11/06/2017 Influenza Vaccine (#1) 2025 Pneumococcal Vaccine Aged Out No long er eligible based on patient's age to complete this topic RSV Ped < 20 months Aged Out No longe r eligible based on patient's age to complete this topic Medical Devices Implanted Type Area Configuration Engineer Device Identifier Shelf Expiration Date Model / Serial / Lot Knee Fem Bsplt W Pa Stry-Howm [id number] - [id number] Implanted:Qty: 1 on 11/09/2022 by Omar Elizabeth MD at [facility] [place] and Med Right: Knee [employer] [id number] 08/18/2027 5517-F-502 / / [id number] Knee Bsplt Triathlon Ti Sz 4 Stry-Howm [id number] - [id number] Implanted:Qty: 1 on 11/09/2022 by Omar Elizabeth MD at [facility] [place] and Med Right: Knee [employer] [id number] 07/09/2027 5536-B-400 / / [id number] Knee Tib Insrt Cr-X3 [id number] Stry-How [id number] 525 - [id number] Implanted:Qty: 1 on 11/09/2022 by Omar Elizabeth MD at [facility] [place] and Med Right: Knee [employer] [id number] 02/05/2025 5530-G-411 / / [id number] Knee Ptla Asym Tritanium 35x10 Stry-How [id number] [id number] - [id number] Implanted:Qty: 1 on 11/09/2022 by Omar Elizabeth MD at [facility] [place] [facility] Med Right: Knee [employer] [id number] 08/04/2027 5552-L-350 / / [id number] Advance Directives For more information, please contact: [phone] Latest Code Status on File Code Status Date Activated Date Inactivated Comments Full Code 11/09/2022 6:52 AM 11/10/2022 7:09 PM This co de status was ascertained in the following way: discussion with healthcare hostess party sales representative . Code Status History Code Status Date Activated Date Inactivated Comments Full Code 11/09/2022 6:00 AM 11/09/2022 6:52 AM This co de status was ascertained in the following way: discussion with patient . Care Teams Glove Sewer Relationship Specialty Start Date End Date Mir Bryant MD [address] [place] [address] [address] Liliana Devries [place] [address] PCP - General Internal Medicine 12/25/21
--- OUTSIDE RECORDS SUMMARY | 2025-06-20 20:02 | XMS_ITS | Clinical Summary ---
Author Organization [facility] Address [address] [place] [address] Care Team Providers Care Knocker Out Name Role Phone Mir Bryant MD Primary Care Provider [phone] Surgical History Surgery Date Site/Laterality Comments APPENDECTOMY PROCEDURE:APPENDECTOMY KNEE SURGERY PROCEDURE:KNEE SURGERY Medical History Medical History Date Comments Hypertension DX:Hypertension History of drug overdose 2021 DX:Hist ory of drug overdose;COMMENT:Pt reports he took a Perc 30 he aspirated and went into cardiac arrest Social History Tobacco Use Types Packs/Day Years Used Date Smoking Tobacco: Former Cigarettes 0 Q uit: 07/05/1989 Alcohol Use Standard Drinks/Week Comments Yes 6 (1 standard drink = 0.6 oz pur e alcohol) Sex and Gender Information Value Date Recorded Sex Assigned at Not on file Legal Sex Male 11:58 PM EST Gender Identity Not on file Sexual Orientation Not on file Last Filed Vital Signs Vital Sign Reading Time Taken Comments Blood Pressure - - Pulse - - Temperature - - Respiratory Rate - - Oxygen Saturation - - Inhaled Oxygen Concentration - - Weight 88.5 kg (195 lb) 12/25/2021 2:07 PM EDT Height 172.7 cm (5' 8 ) 12/25/2021 2:07 PM EDT Body Mass Index 29.65 12/25/2021 2:07 PM EDT Plan of Treatment Health Maintenance Due Date Last Done Comments Colorectal Cancer Screening: Colonoscopy 1967 DTaP,Tdap,and Td Vaccines (1 - Tdap) 11/06/1986 Hepatitis B Vaccines (1 of 3 - 19+ 3-dose series) 11/06/1986 Pneumococcal Vaccine: 50+ Ye ars (1 of 1 - PCV) 11/06/2017 Zoster Vaccines (1 of 2) 11/06/2017 Cholesterol Screening (Lipid Panel) 06/07/2022 HIV Screening 06/07/2022 Hepatitis C Screening 06/07/2022 Social Influencers of Health Screening 06/07/2022 Depression Screening 07/05/2024 COVID-19 Vaccine (1 - 2024-2 6 season) 2025 Influenza Vaccine (#1) 2025 RSV Immunization Adult Patie nts (1 - 1-dose 75+ series) 11/06/2042 HIB Vaccines Aged Out No longer eligi ble based on patient's age to complete this topic HPV Vaccines Aged Out No longer eligi ble based on patient's age to complete this topic Hepatitis A Vaccines Aged Out No long er eligible based on patient's age to complete this topic IPV Vaccines Aged Out No longer eligi ble based on patient's age to complete this topic MMR Vaccines Aged Out No longer eligi ble based on patient's age to complete this topic Meningococcal ACWY Vaccine Aged Out N o longer eligible based on patient's age to complete this topic Meningococcal B Vaccine Aged Out No l onger eligible based on patient's age to complete this topic RSV Immunization Patients Un yoni 20 months Aged Out No longer eligible b ased on patient's age to complete this topic Varicella Vaccines Aged Out No longer eligible based on patient's age to complete this topic Medical Devices Implanted Type Area Manager Infrastructure Device Identifier Shelf Expiration Date Model / Serial / Lot Knee Fem Bsplt W Pa Stry-How [id number] Implanted:Qty: 1 on 11/09/2022 by Omar Elizabeth MD Right: Knee [employer] [id number] 08/18/2027 5517-F-502 / / [id number] Knee Bsplt Triathlon Ti Sz 4 Stry-How [id number] Implanted:Qty: 1 on 11/09/2022 by Omar Elizabeth MD Right: Knee [employer] [id number] 07/09/2027 5536-B-400 / / [id number] Knee Tib Insrt Cr-X3 [id number] Stry-How [id number] Implanted:Qty: 1 on 11/09/2022 by Omar Elizabeth MD Right: Knee [employer] [id number] 02/05/2025 5530-G-411 / / [id number] Knee Ptla Asym Tritanium 35x10 [facility] [id number] Implanted:Qty: 1 on 11/09/2022 by Omar Elizabeth MD Right: Knee [employer] [id number] 08/04/2027 5552-L-350 / / [id number] Care Teams Knocker Out Relationship Specialty Start Date End Date Mri Bryant MD PCP - General Internal Medicine 12/25/21
== END 2025-06-20 16:01 | disposition home or self-care (01) ==
LOC: HO.HOS 15:05
PROVIDERS: Visit Provider Orthopaedic Surgery
DX: S83.242A Other tear of medial meniscus, current injury, left knee, initial encounter (principal); M25.562 Pain in left knee
CPT/HCPCS: 20610; 99203

== ENCOUNTER → 2025-06-20 15:06 | Outpatient (BNV) | payer MEDICAID, SELFPAY | PROVIDERS: Visit Provider Radiology Diagnostic Radiology | DX: M17.2 Bilateral post-traumatic osteoarthritis of knee (principal); M11.262 Other chondrocalcinosis, left knee; M25.462 Effusion, left knee | CPT/HCPCS: 73562 ==